=== PATIENT | male | born 1970 | race Caucasian/White ===

== ENCOUNTER 2021-01-06 14:40 | Emergency (ER) | payer OTHER ==
[~2021-01-06] VITALS: Ht 175.3 cm; Wt 90.7 kg
[~2021-01-06 14:40] MED LIST: MOTRIN 600 MG600 M1 PO; PHENERGAN-CODE120 ML PO; PREDNISONE 20 M20 M1 PO; VENTOLIN17 GM INH; VICODIN 5-5001 EACH PO; ZOLOFT; ZPAK PO
[2021-01-06] MEDS ORDERED: LISINOPRIL20 MG PO (14:55)
[2021-01-06] MEDS ORDERED: FLEXERIL PO ×2 (15:30→15:32)
[2021-01-06] MEDS ORDERED: NORCO5 PO ×2 (15:30→15:32)
[2021-01-06] MEDS ORDERED: IBUPROFEN 800800 M1 PO ×2 (15:30→15:32)
[2021-01-06 15:48] VITALS: BP 138/72
== END 2021-01-06 15:49 | disposition home or self-care (01) ==
LOC: M.ERS 14:40
DX: S46.811A Strain of other muscles, fascia and tendons at shoulder and upper arm level, right arm, initial encounter (principal); I10 Essential (primary) hypertension; F17.210 Nicotine dependence, cigarettes, uncomplicated; X50.9XXA Other and unspecified overexertion or strenuous movements or postures, initial encounter; Y93.89 Activity, other specified; Y92.89 Other specified places as the place of occurrence of the external cause; Y99.8 Other external cause status